=== PATIENT | female | born 1950 | race Caucasian/White ===

== ENCOUNTER → 2021-11-06 | Outpatient (CLI) | payer MEDICARE, SELFPAY ==
--- NOTE | 2021-11-06 12:04 | BI_ITS ---
MAMMOGRAPHY - BILATERAL SCREENING REASON FOR EXAM: Female, 71 years old. Routine annual screening examination. PERTINENT HISTORY: Non-contributory. TECHNIQUE: Digital bilateral breast robert (3D mammographic acquisition) in the CC and MLO projections. 2-D mediolateral oblique (MLO) and craniocaudad (CC) views of both breasts were obtained. CAD: Full Field Digital Mammography with Computer Added Detection was performed. COMPARISON: Comparison is made with prior examination dated 03/14/2020 and 09/29/2013. FINDINGS: Breast Composition: There are scattered areas of fibroglandular density. There are no dominant masses or suspicious calcifications. Stable small benign-appearing bilateral axillary lymph nodes. No other significant abnormalities are identified. There has been no significant change since the prior study. BI/SCRN MAMM (CAD)W/ROBERT BILAT IMPRESSION: Stable bilateral screening mammogram. Yearly follow-up mammogram recommended. (A) ASSESSMENT CATEGORY: BIRADS Category 2: Benign. A letter regarding these results will be sent to the patient by the facility within 30 days. Approximately 10% of breast cancers are not detected by mammography. A normal mammogram should not delay biopsy of a clinically suspicious abnormality. [id number] Electronically Signed: Alexander Barron MD at 13:36 EDT ,
== END | disposition home or self-care (01) ==
PROVIDERS: PCP Nurse Practitioner Family; Referring Provider Nurse Practitioner Family; Visit Provider Nurse Practitioner Family
DX: Z12.31 Encounter for screening mammogram for malignant neoplasm of breast (principal)
CPT/HCPCS: 77063; 77067

== ENCOUNTER 2021-12-24 09:12 | Outpatient (CLI) | payer MEDICARE, SELFPAY ==
--- NOTE | 2021-12-24 09:19 | US_ITS ---
STUDY: ULTRASOUND BREAST - LEFT REASON FOR EXAM: Female, 71 years old. Left axillary adenopathy. TECHNIQUE: Axial and longitudinal images of the LEFT breast were performed with a high resolution ultrasound transducer. # OF IMAGES: 49 COMPARISON: Comparison is made with prior mammogram dated 11/06/2021. FINDINGS: LEFT Breast: Multiple lymph nodes are seen in the left axillary region. The largest lymph node measures 2 cm x 1.1 cm x 0.8. Focal hypodensity is seen along its superior aspect. Biopsy recommended. US/Breast Limited Unilateral IMPRESSION: Dominant lymph node in the left axilla measuring 2 cm x 1.1 cm x 0.8 cm with focal cystic area. Biopsy recommended. ASSESSMENT CATEGORY: BIRADS Category 4: Suspicious - Biopsy Should Be Considered. A letter regarding these results will be sent to the patient by the facility within 30 days. Electronically Signed: Alexander Barron MD at 8:59 EDT ,
== END 2021-12-24 23:59 | disposition home or self-care (01) ==
PROVIDERS: PCP Nurse Practitioner Family; Visit Provider Nurse Practitioner Family
DX: R59.0 Localized enlarged lymph nodes (principal); R92.8 Other abnormal and inconclusive findings on diagnostic imaging of breast
CPT/HCPCS: 76642

== ENCOUNTER → 2022-01-09 | Outpatient (CLI) | payer MEDICARE, SELFPAY ==
--- NOTE | 2022-01-09 | LYMN_PTH ---
PATIENT: DAMASO GARCIA LOC: [facility]#:[id number] AGE/SX: 71/F ROOM: RE01/09/[address]: Dr. Debbie Dyer MD : 1950 BED: DIS: 01/09/2022 SPEC #: [id number] RECD: 01/09/22 12:41 STATUS: LOIS ALETHA #: [id number] LEYDA: 01/09/22 00:[address]: Debbie Dyer DEPT: SURGICAL PATHOLOGY RECD BY: Stacy Fajardo ENTERED: 01/10/22 13:18 SP TYPE: LYMPH NODE OTHR DR: BOLIVAR Webster Tissues: LYMPH NODE BIOPSY Procedures: Surgery Specimen Level IV HEADER OPERATION: Ultrasound-guided left axillary lymph node biopsy PRE-OP DIAGNOSIS: Abnormal ultrasound of left axillary lymph node TISSUE SUBMITTED: Left axillary lymph node ISCHEMIC TIME: <1 minute FIXATION TIME: 31.5 hours MICROSCOPIC DIAGNOSIS Left axillary lymph node, ultrasound-guided core biopsy: Lymph node tissue with no pathologic change. See comment. AM:reji 01/11/2022 COMMENT Immunohistochemistry ([id number]) supports the above diagnosis. Case has been reviewed in consultation with Dr. Tracy who concurs with the above diagnosis. IDC:ODALIS MICROSCOPIC DESCRIPTION Slides are reviewed. GROSS DESCRIPTION Received in fixative is one container labeled with the patient's name and designated left axilla. The specimen consists of two elongated fragments of navarrete-yellow fibroadipose tissue measuring in aggregate 1.5 x 0.2 x 0.1 cm. The specimen is totally submitted in one cassette. / ODALIS:reji 01/10/2022 TC: CPT: 46474
--- NOTE | 2022-01-09 | IMM_PTH ---
PATIENT: DAMASO GARCIA LOC: [facility]#:[id number] AGE/SX: 71/F ROOM: RE01/09/[address]: Dr. Debbie Dyer MD : 1950 BED: DIS: 01/09/2022 SPEC #: [id number] RECD: 01/11/22 11:31 STATUS: LOIS REQ #: [id number] LEYDA: 01/09/22 00:[address]: Debbie Dyer DEPT: IMMUNOHISTOCHEMISTRY RECD BY: Marilia Hurst ENTERED: 01/11/22 11:34 SP TYPE: IMMUNO OTHR DR: Alison Pastor, MANAGER CARDIAC-C Tissues: Axillary lymph node, NOS Procedures: BCL-2 (add) BCL-6 (add) CD10 (add) CD138 (add) CD15 (add) CD20 (add) CD23 (add) CD3 (add) CD30 (add) CD43 (add) CD45 (add) CD5 (add) CD79A (add) CYCLIN (add) KAPPA (add) KI-67 (add) LAMBDA (add) P53 (add) MUM1 (add) C-MYC (add) Pankeratin (initial) PHYSICIAN & [place] [id number] SPECIMEN INFORMATION: Tissue Source: Left axillary lymph node Clinical Info: Abnormal ultrasound of left axillary lymph node Specimen Number: [id number] CPT code: 87052, 33083 x20 METHODOLOGY: Deparaffinized sections of prefer/formalin-fixed tissue or PAP/DQ stained slides are incubated with monoclonal/polyclonal antibodies/oligonucleotide probes. Localization is made via biotin free immunoperoxidase method. Appropriate controls are performed and reacted as expected. Results on target cell population are indicated in the following table: RESULTS: ANTIBODY / CLONE RESULT AE1-3 (AE1/AE3/PCK26) negative CD3 (PS1) positive CD5 (SP10) positive CD10 (56C6) negative CD15 (MMA) negative CD20 (L26) positive CD23 (1B12) negative CD30 ([place]-H2) negative CD43 (L60) positive CD45 (RP2/18) positive CD79a (11E3) positive CD138 (B-A38) negative BCL-2 (bcl-2/100/D5) negative BCL-6 (QP202I/A8) negative [place] D1/BCL-1 (SP4) negative MUM1 (MRQ-43) negative C-MYC (Y69) negative [place] (polyclonal) negative Lambda (polyclonal) negative P53 (DO-7) negative Ki-67 (30-9) positive, low These tests were developed and their performance characteristics determined by [facility]. They may not have been cleared or approved by the U.S. Food and Drug Administration. The FDA has determined that such clearance or approval is not necessary. The above immunohistochemical/dualISH markers are ordered and reviewed by the Pathologist. INTERPRETATION: Left axillary lymph node, biopsy: Polytypic (benign) lymphoid tissue. AM:reji 01/14/2022
--- NOTE | 2022-01-09 11:24 | US_ITS ---
ULTRASOUND GUIDED CORE BIOPSY REASON FOR EXAM: Female, 71 years old. Abnormal breast ultrasound -- axillary LN, poss LT breast 9oclock +6 PERTINENT HISTORY: Abnormal left axillary lymph node. COMPARISON: Comparison is made with prior sonogram dated 12/24/2021. TECHNIQUE: (All elements of maximal sterile barrier technique followed, including US elements as applicable) Under direct sonographic guidance, the surgeon performed 2 core biopsies of the left axillary lymph node. US/US Breast Biopsy 1st Lesion IMPRESSION: Ultrasound guided core biopsy of a mass in the LEFT breast at axillary region without complication. Electronically Signed: Alexander Barron MD at 14:35 EDT ,
--- NOTE | 2022-01-09 11:29 | US_ITS ---
STUDY: ULTRASOUND BREAST - LEFT REASON FOR EXAM: Female, 71 years old. Possible abnormality at the 9 o''clock position of the breast. TECHNIQUE: Axial and longitudinal images of the LEFT breast were performed with a high resolution ultrasound transducer. # OF IMAGES: 66 COMPARISON: Comparison is made with prior examination 12/24/2021. FINDINGS: LEFT Breast: Targeted ultrasound demonstrated mildly dilated retroareolar ducts. US/Breast Limited Unilateral IMPRESSION: Dilated retroareolar ducts. No mass lesion is seen. ASSESSMENT CATEGORY: BIRADS Category 2: Benign. A letter regarding these results will be sent to the patient by the facility within 30 days. Electronically Signed: Alexander Barron MD at 14:42 EDT ,
--- NOTE | 2022-01-09 12:48 | PCM.OPRPT ---
Report of Operation Date of Procedure: 01/09/22 Pre-Operative Diagnosis: Left axillary lymphadenopathy Post-Operative Diagnosis: Same Surgery/Procedure Performed:: Left axillary ultrasound-guided lymph node core biopsy Surgeon: Debbie Dyer Type of Anesthesia: Local Specimen's removed: Left axillary lymph node Estimated Blood Loss (mL): minimal Description of Procedure: Procedure: Left axillary lymph node ultrasound-guided core biopsy Indications: 71year-old female with the left axillary lymphadenopathy seen on CT chest. Risk benefits were discussed the patient and she elected to proceed with ultrasound guided core biopsy with clip placement Description of procedure: Patient was brought into the ultrasound room in the left axilla was marked. A timeout was completed verifying correct patient, procedure, site, specially, prior to beginning procedure. The left axilla was prepped and draped in usual sterile fashion and using local anesthesia was obtained with 1% lidocaine with epi. The lesion was located with the ultrasound. Small incision was made with 11 blade to introduced the BARD MaxCore through the skin. Under ultrasound guidance multiple core samples were obtained using then 14-gauge BARD MaxCore and sent in formalin for pathology. The Bard dual ultra ribbon clip was then deployed into the biopsy cavity under ultrasound guidance and a picture was taken. Upon completion procedure hemostasis was obtained and a Steri-Strip and OpSite were placed. The patient tolerated the procedure well and was discharged from the breast imaging department good condition. Complications none
== END | disposition home or self-care (01) ==
PROVIDERS: PCP Nurse Practitioner Family; Referring Provider Surgery; Visit Provider Surgery
DX: R59.0 Localized enlarged lymph nodes (principal); R92.8 Other abnormal and inconclusive findings on diagnostic imaging of breast
CPT/HCPCS: 19083; 76642; 88305; 88341; 88342

== ENCOUNTER → 2024-09-16 | Outpatient (CLI) | payer MEDICARE, SELFPAY ==
--- NOTE | 2024-09-16 08:44 | US_ITS ---
PROCEDURE: BREAST LIMITED UNILATERAL 09/16/2024 REASON FOR EXAM: ASYMMETRY/ABN MAMM TECHNIQUE: Targeted sonogram of the left breast was obtained. COMPARISON: Comparison is made with prior mammogram done earlier in the day. FINDINGS: LEFT: Left breast ultrasound was targeted to the lateral aspect of the left breast.. There is a 4 mm x 4 mm x 2 mm cystic nodule at the 4 o'clock position of the breast at 5 cm from the nipple. This corresponds to the mammographic findings. There is also evidence of a 1.2 cm x 0.5 cm x 0.4 cm hypoechoic nodule which is well-defined with a fatty hilum suggestive of a small lymph node. This is at the 3 o'clock position of the breast at 1 cm from the nipple. US/Breast Limited Unilateral IMPRESSION: The mammographic abnormality corresponds with a 4 mm x 4 mm x 2 mm cystic nodul e at the 4 o'clock position of the breast at 5 cm from the nipple. Incidental note is made of a benign-appearing lymph node at t he 3 o'clock position of the breast at 1 cm from the nipple. Follow-up code: BI-RADS category: 2 Reading Location: [place] [id number]
--- NOTE | 2024-09-16 08:44 | BI_ITS ---
EXAM: DIAG MAMM W/CAD, UNILAT 09/16/2024 CLINICAL HISTORY: F, Age 74 y/o , ASYMMETRY/ABN MAMM BREAST CANCER RISK ASSESSMENT: Not assessed. TECHNIQUE: Unilateral diagnostic digital breast tomosynthesis with 2D and 3D images. Computer aided detection. COMPARISON: Prior exam(s) dating back to December 23, 2023.. FINDINGS: Bilateral Breast Mammographic Findings: Stable 4 mm x 2 mm nodular density in the deep central portion of the left breast. This is unchanged as compared to prior study. TISSUE DENSITY: The breast tissue is composed of scattered area of fibroglandular density. Sonographic correlation recommended. BI/DIAG MAMM W/CAD, UNILAT IMPRESSION: Left Breast: BIRADS 0 PRIOR INCOMPLETE/NEED PRIOR. OVERALL FINAL ASSESSMENT: BIRADS 0 INCOMPLETE/NEED ADD. IMAGING RECOMMENDATION: Targeted sonographic correlation. Normal interval followup mammograms are recommended in 12 months. A letter with findings and recommendations will be mailed to the patient. Reading Location: [place] [address]
== END | disposition home or self-care (01) ==
LOC: OPBI 08:41
PROVIDERS: PCP Nurse Practitioner Family; Referring Provider Nurse Practitioner Family; Visit Provider Nurse Practitioner Family
DX: R92.8 Other abnormal and inconclusive findings on diagnostic imaging of breast (principal)
CPT/HCPCS: 76642; 77061; 77065; G0279